=== PATIENT | male | born 2000 | race Caucasian/White ===

== ENCOUNTER 2018-04-17 10:42 | Outpatient (CLI) | payer BC ==
[2018-04-17 18:49] LABS: BASOPHILS % (AUTO) 0.7 %; EOSINOPHILS # (AUTO) 0.1 10^3/uL (0.0-0.7); EOSINOPHILS % (AUTO) 0.9 %; HGB - HEMOGLOBIN 14.6 g/dL (14.0-18.0); LYMPHOCYTES # (AUTO) 1.6 10^3/uL (1.5-3.5); LYMPHOCYTES % (AUTO) 25.6 %; MEAN CORPUSCULAR HEMOGLOBIN 29.7 pg (27.0-31.0); MEAN CORPUSCULAR HGB CONC 33.5 g/dL (32.0-36.0); MEAN CORPUSCULAR VOLUME 88.8 fL (80.0-94.0); MEAN PLATELET VOLUME 8.4 fL (7.4-11.4); MONOCYTES # (AUTO) 0.4 10^3/uL (0.0-1.0); MONOCYTES % (AUTO) 6.5 %; NEUTROPHILS % (AUTO) 66.3 %; PLT - PLATELET COUNT 237 10^3/uL (130-450); WHITE BLOOD COUNT 6.1 x10^3/uL (4.8-10.8)
[2018-04-17 19:06] LABS: ALBUMIN 4.8 g/dL (3.2-5.5); ALBUMIN/GLOBULIN RATIO 1.8 (1.0-2.2); ALKALINE PHOSPHATASE 66 IU/L (42-121); ALT ALANINE AMINOTRANSFERASE 17 IU/L (10-60); AST ASPARTATE AMINOTRANSFERASE 21 IU/L (10-42); BILIRUBIN,TOTAL 1.2 mg/dL (0.2-1.0); BUN - BLOOD UREA NITROGEN 16 mg/dL (6-20); CALCIUM 9.6 mg/dL (8.5-10.3); CARBON DIOXIDE - CO2 28 mmol/L (21-32); CHLORIDE 103 mmol/L (101-111); CHOL/HDL RATIO 2.2 (<5.0); CHOLESTEROL 132 mg/dL; CREATININE 0.8 mg/dL (0.6-1.2); GFR - MDRD 125 (>89); GLUCOSE 98 mg/dL (70-100); HDL CHOLESTEROL 60 mg/dL; SODIUM 140 mmol/L (135-145); TOTAL PROTEIN 7.5 g/dL (6.7-8.2)
[2018-04-17 19:42] LABS: LDL CHOLESTEROL,DIRECT 70 mg/dL; LDLD/HDL RATIO 1.2 (<3.6)
== END 2018-04-17 10:43 | disposition home or self-care (01) ==
LOC: LAB.WCP 10:42
PROVIDERS: ATTEND Family Medicine
DX: R63.4 Abnormal weight loss (principal)
CPT/HCPCS: 36415; 80053; 80061; 83721; 84443; 85025

== ENCOUNTER 2018-10-24 13:37 | Outpatient (CLI) | payer OTHER ==
--- NOTE | 2018-10-25 12:52 | XRAY Report ---
Reason: RIGHT FOOT PAIN Procedure Date: 10/24/2018 Accession Number: [id number] / [id number] Procedure: WCP - Foot 3 View RT CPT Code: FULL RESULT: EXAM: RIGHT FOOT RADIOGRAPHY EXAM DATE: 10/24/2018 01:37 PM. CLINICAL HISTORY: RIGHT FOOT PAIN. COMPARISON: None. TECHNIQUE: 3 views. FINDINGS: Bones: Normal. No fractures or bone lesions. Joints: Normal. No subluxations. Soft Tissues: Normal. No soft tissue swelling. IMPRESSION: Normal foot radiography. RADIA
== END 2018-10-24 23:59 | disposition home or self-care (01) ==
LOC: DI.WCP 13:37
PROVIDERS: ATTEND Family Medicine
DX: S90.31XA Contusion of right foot, initial encounter (principal)

== ENCOUNTER 2019-11-24 19:03 | Emergency (ER) | payer OTHER ==
[2019-11-24] MEDS ORDERED: TETANUS/DIPHTHERIA/PERTUSSIS 0.5 ML SYRINGE IM ONE (19:24)
[2019-11-24] MEDS ORDERED: BUFFERED LIDOCAINE 10 ML SYRINGE SUBQ STA (20:43)
[2019-11-24] MEDS ORDERED: BACITRACIN ZINC OINT 1 PACKET TOP STA (21:06)
[2019-11-24] MEDS ORDERED: cephALEXin 250 MG CAPSULE PO STA (21:07)
--- NOTE | 2019-11-24 21:10 | ED Physician Documentation ---
PD HPI UPPER EXT INJURY - Stated complaint Stated Complaint: L FINGER LAC - Chief complaint Chief Complaint: Laceration - History obtained from History obtained from: Patient - History of Present Illness Location: Left, Finger (index) Type of injury: Laceration (on metal flashing) Where injury occurred: Home Timing - onset: How many hours ago (1) Timing - duration: Hours (1) Timing - details: Abrupt onset Pain level max: 3 Pain level now: 2 Improved by: Rest Worsened by: Moving, Palpating Associated symptoms: No: Weakness, Numbness, Tingling, Swelling Contributing factors: No: Anticoagulated, Prior ortho surgery Recently seen: Not recently seen - Additonal information Additional information: pt is right handed, unknown last Td. Review of Systems Constitutional: denies: Fever Neurologic: denies: Focal weakness PD PAST MEDICAL HISTORY - Past Medical History Past Medical History: No - Past Surgical History Past Surgical History: No - Present Medications Home Medications: Ambulatory Orders Medication Instructions Recorded Confirmed Cephalexin [Keflex] 500 mg PO Q6H #28 capsule 11/24/19 - Allergies Allergies/Adverse Reactions: Allergies Allergy/AdvReac Type Severity Reaction Status Date / Time No Known Drug Allergies Allergy Verified 11/24/19 19:22 - Social History Does the pt smoke?: No Smoking Status: Never smoker Does the pt drink ETOH?: No Does the pt have substance abuse?: No - Immunizations Immunizations: TDAP >10years/unknown - POLST Patient has POLST: No PD ED PE NORMAL - Vitals Vital signs reviewed: Yes - General General: Alert and oriented X 3, No acute distress - HEENT HEENT: Moist mucous membranes - Derm Derm: Warm and dry - Extremities Extremities: Other (L index finger - Rectangular flap laceration 2cm palmar aspect of the mid phalanx. NVI. no Tendon injury. Superficial.) - Neuro Neuro: Alert and oriented X 3 - Psych Psych: Normal mood, Normal affect Results - Vitals Vitals: Vital Signs - 24 hr 11/24/19 11/24/19 19:10 21:21 Temperature 36.8 C 36.5 C Heart Rate 95 77 Respiratory 16 18 Rate Blood Pressure 145/75 H 148/77 H O2 Saturation 100 100 Oxygen O2 Source Room air Procedures - Laceration (location) L index finger Length in cm: 2 Wound type: Curved, Flap, Superficial, Into subcut fat, Clean Neurovascular status: Sensory intact, Motor intact, Vascular intact Tendon involvement: Tendon intact Anesthesia: Lidocaine 1% (buffered) Wound Preparation: Irrigated copiously NS, Wound explored, To the base Skin layer closure: Nylon, Interrupted, Size #-0 - enter number (4) Other: Patient tolerated well, No complications, Neurovascular intact, Tetanus booster given (tdap) Complexity: Simple PD MEDICAL DECISION MAKING - ED course Complexity details: considered differential, d/w patient, d/w family ED course: Laceration repaired. Tolerated well. Tdap given. Placed in a finger splint to help the healing process. They will remove the splint in a few days. We will place on cephalexin as well. Warnings of infection and instructions on wound care given at bedside. Also counseled on how to minimize scarring. Patient counseled regarding signs and symptoms for which I believe and urgent re- evaluation would be necessary. Patient with good understanding of and agreement to plan and is comfortable going home at this time This document was made in part using voice recognition software. While efforts are made to proofread this document, sound alike and grammatical errors may occur. Departure - Departure Disposition: 01 Home, Self Care Clinical Impression: Finger laceration Qualifiers: Encounter type: initial encounter Finger: index finger Damage to nail status: without damage Foreign body presence: unspecified Laterality: left Qualified Code(s): S61.211A - Laceration without foreign body of left index finger without damage to nail, initial encounter Condition: Good Instructions: ED Laceration Hand Follow-Up: your,doctor in 14 days for suture removal [Other] Prescriptions: Cephalexin [Keflex] 500 mg PO Q6H #28 capsule Comments: The sutures to be removed in approximately 14 days with your doctor. You can remove the splint after 2 to 3 days. Be gentle with the finger for the next few days. Return if you notice redness, swelling or drainage from the wound. Follow-up with your doctor for further care. Take all antibiotics until gone. Discharge Date/Time: 11/24/19 21:25
[2019-11-24 21:22] VITALS: BP 148/77
== END 2019-11-24 21:25 | disposition home or self-care (01) ==
LOC: ED 19:03
DX: S61.211A Laceration without foreign body of left index finger without damage to nail, initial encounter (principal); W26.8XXA Contact with other sharp object(s), not elsewhere classified, initial encounter; Y93.H3 Activity, building and construction; Y92.009 Unspecified place in unspecified non-institutional (private) residence as the place of occurrence of the external cause
CPT/HCPCS: 12001; 90471; 90715; 99283; 99284; A9270

== ENCOUNTER 2020-09-16 18:09 | Emergency (ER) | payer OTHER ==
[2020-09-16 18:21] VITALS: BP 157/60
[2020-09-16] MEDS ORDERED: PENICILLIN VK 250 MG TABLET PO STA (18:42)
[2020-09-16] MEDS ORDERED: HYDROcod/ACETAM 5/325 MG TABLET PO STA (18:42)
--- NOTE | 2020-09-16 18:43 | ED Physician Documentation ---
History of Present Illness - Stated complaint Stated Complaint: DENTAL PAIN - Chief complaint Chief Complaint: Heent - History obtained from History obtained from: Patient - History of Present Illness Pain level max: 10 Pain level now: 10 - Additonal information Additional information: Patient is a 20-year-old male who presents to the emergency department left lower dental pain ongoing for the past several days. He states he broke the tooth about a year ago, but has not had it fixed by a dentist yet. He states he has a dental appointment tomorrow. Increasing pain tonight. Currently not on antibiotics. No fevers. Nothing makes it better or worse. Review of Systems Constitutional: denies: Fever, Chills GI: denies: Vomiting Skin: denies: Rash PD PAST MEDICAL HISTORY - Past Medical History Past Medical History: No - Past Surgical History Past Surgical History: No - Present Medications Home Medications: Ambulatory Orders Medication Instructions Recorded Confirmed cephALEXin [Keflex] 500 mg PO Q6H #28 capsule 11/24/19 HYDROcod/ACETAM 5/325 [Weikert 5/325] 1 - 2 ea PO Q6H PRN #14 tablet 09/16/20 Penicillin V Potassium 500 mg PO Q6HR #40 tablet 09/16/20 - Allergies Allergies/Adverse Reactions: Allergies Allergy/AdvReac Type Severity Reaction Status Date / Time No Known Drug Allergies Allergy Verified 09/16/20 18:21 - Living Situation Living Situation: reports: With family Living Arrangement: reports: At home - Social History Does the pt smoke?: No Smoking Status: Never smoker Does the pt drink ETOH?: No Does the pt have substance abuse?: No - Immunizations Immunizations: TDAP >10years/unknown - POLST Patient has POLST: No PD ED PE NORMAL - Vitals Vital signs reviewed: Yes - General General: Alert and oriented X 3, No acute distress - HEENT HEENT: Moist mucous membranes, Other (Fractured left lower molar. No drainable abscess. Normal phonation. No trismus. No facial swelling) - Neck Neck: Supple, no meningeal sign - Cardiac Cardiac: RRR - Respiratory Respiratory: No respiratory distress - Derm Derm: Warm and dry - Neuro Neuro: Alert and oriented X 3 Results - Vitals Vitals: Vital Signs - 24 hr 09/16/20 18:17 Temperature 37.0 C Heart Rate 116 H Respiratory 14 Rate Blood Pressure 157/60 H O2 Saturation 97 Oxygen O2 Source Room air PD MEDICAL DECISION MAKING - ED course Complexity details: considered differential, d/w patient ED course: Patient with dental caries. We will have him follow-up with his dentist tomorrow. Will prescribe pain medication and antibiotics for home. Patient counseled regarding signs and symptoms for which I believe and urgent re- evaluation would be necessary. Patient with good understanding of and agreement to plan and is comfortable going home at this time This document was made in part using voice recognition software. While efforts are made to proofread this document, sound alike and grammatical errors may occur. Departure - Departure Disposition: Home, Self Care Clinical Impression: Dental caries Condition: Good Instructions: ED Tooth Pain, ED Cavity Dental Follow-Up: Shila Zhou PA-C [Primary Care Provider] - Prescriptions: Penicillin V Potassium 500 mg PO Q6HR #40 tablet HYDROcod/ACETAM 5/325 [Weikert 5/325] 1 - 2 ea PO Q6H PRN #14 tablet PRN Reason: Pain Comments: You can use the medications as needed for pain. Take all antibiotics until gone. Follow-up with your dentist tomorrow for further care. Return if you worsen. I am prescribing a short course of narcotic pain medication for you. These are potentially dangerous and addictive medications that should be used carefully. These medications may constipate you. Take an [id number]-irdtery stool softener (docusate) twice daily with plenty of water while taking these medications. If you go 24 hours without a bowel movement, take [id number] miralax, per package instructions. Do not drink or drive while taking these medications. If you received narcotic or sedating medications while in the emergency department, do not drive for 24 hours. Store this medication in a safe, secure place and out of reach of children. It is a violation of federal law to give or sell this medication to another person or to use in a manner other than prescribed. The ED will not refill narcotic prescriptions, including prescriptions lost or stolen. To dispose of unwanted medications: 1. [facility] at [address] in [place] has a medication drop box. They accept prescription medications (in pill form) Monday through Monday 9:00 a.m. to 5:00 p.m. 2. [facility] accepts prescription medications (in pill form only) for disposal year round. Call for more information. 3. Contact the [facility] for the next [facility] sponsored prescription drug collection event. , [phone], or [phone]; Discharge Date/Time: 09/16/20 19:02
== END 2020-09-16 19:02 | disposition home or self-care (01) ==
LOC: ED 18:09
DX: K02.9 Dental caries, unspecified (principal)
CPT/HCPCS: 99282; 99284; A9270

== ENCOUNTER 2020-11-10 19:17 | Emergency (ER) | payer OTHER ==
--- NOTE | 2020-11-10 19:35 | ED Physician Documentation ---
History of Present Illness - Stated complaint Stated Complaint: INFECTED WISDOM TOOTH L - Chief complaint Chief Complaint: Heent - History obtained from History obtained from: Patient - Additonal information Additional information: Here w/ left lower wisdom tooth pain that started yesterday. Had similar pain back in August, was seen here and then did follow up with dentist however dentist apparently then went on vacation and in the meantime the patient's pain resolved so he didn't follow up again. He presents today w/ same pain that came on suddenly in the left lower molar. He has been icing it and using ibuprofen and tylenol. He has not had any fever, facial swelling, oral swelling. He states he received PCN last time which helped but he later developed hives. Review of Systems Constitutional: reports: Reviewed and negative Eyes: reports: Reviewed and negative Ears: reports: Reviewed and negative Nose: reports: Reviewed and negative Throat: reports: Dental pain / toothache. denies: Oral lesions / sores, Sore throat, Swollen tonsils Cardiac: reports: Reviewed and negative Respiratory: reports: Reviewed and negative GI: reports: Reviewed and negative : reports: Reviewed and negative Skin: reports: Reviewed and negative Musculoskeletal: reports: Reviewed and negative Neurologic: reports: Reviewed and negative Psychiatric: reports: Reviewed and negative Endocrine: reports: Reviewed and negative PD PAST MEDICAL HISTORY - Past Medical History Past Medical History: No - Past Surgical History Past Surgical History: No - Present Medications Home Medications: Ambulatory Orders Medication Instructions Recorded Confirmed Clindamycin [Cleocin] 300 mg PO Q8H 5 Days #15 cap 11/10/20 - Allergies Allergies/Adverse Reactions: Allergies Allergy/AdvReac Type Severity Reaction Status Date / Time Penicillins Allergy Hives Verified 11/10/20 19:20 - Social History Does the pt smoke?: No Smoking Status: Never smoker Does the pt drink ETOH?: No Does the pt have substance abuse?: No - Immunizations Immunizations: TDAP >10years/unknown - POLST Patient has POLST: No PD ED PE NORMAL - Vitals Vital signs reviewed: Yes - General General: Alert and oriented X 3, No acute distress, Well developed/nourished - HEENT HEENT: Atraumatic, PERRL, Moist mucous membranes, Pharynx benign, Other (left lower molar dental alesha, no gum swelling, no facial swelling or erythema) - Neck Neck: Supple, no meningeal sign, No adenopathy, No JVD - Cardiac Cardiac: RRR, No murmur - Respiratory Respiratory: No respiratory distress, Clear bilaterally - Abdomen Abdomen: Normal bowel sounds, Soft, Non tender, Non distended - Derm Derm: Normal color, Warm and dry, No rash - Extremities Extremities: No deformity, No edema - Neuro Neuro: Alert and oriented X 3, No motor deficit, No sensory deficit, Normal speech Eye Opening: Spontaneous Motor: Obeys Commands Verbal: Oriented GCS Score: 15 - Psych Psych: Normal mood, Normal affect Results - Vitals Vitals: Vital Signs - 24 hr 11/10/20 11/10/20 19:21 19:27 Temperature 36.6 C 36.6 C Heart Rate 86 86 Respiratory 18 18 Rate Blood Pressure 181/85 H 181/85 H O2 Saturation 99 99 Oxygen O2 Source Room air PD MEDICAL DECISION MAKING - ED course Complexity details: reviewed old records, re-evaluated patient, d/w patient ED course: Pt presents w/ left lower wisdom molar pain. I see a possible alesha but no facial or gum swelling. He was advised to call dentist tomorrow for follow up. Will start on clinda given pcn allergy, cautioned pt on the side effects of this medication and encouraged yogurt or probiotic use while on the abx. He was advised to take ibuprofen and tylenol as needed for pain. He received 2 tablets of norco in the ED and a 4 tablet home pack to use tomorrow only if needed. He was cautioned on the potential side effects of this medication and advised not to drive or operate heavy machinery, nor use alcohol or other respiratory suppressants simultaneously. I reviewed return precautions in detail w/ pt. Pts initial BP is elevated I suspect 2/2 to pain and advised him to have it rechecked in 1-2 weeks at PCP office or school clinic. Departure - Departure Disposition: 01 Home, Self Care Clinical Impression: Pain due to dental caries, Dental caries Condition: Good Instructions: ED Tooth Pain Prescriptions: Clindamycin [Cleocin] 300 mg PO Q8H 5 Days #15 cap Comments: Please call tomorrow and schedule a dentist appointment. Continue ibuprofen and tylenol as needed for pain. Continue cool compress.
[2020-11-10] MEDS ORDERED: HYDROcod/ACET 5/325 Prepack 4 PO STA (19:36)
[2020-11-10] MEDS ORDERED: HYDROcod/ACETAM 5/325 MG TABLET PO STA (19:37)
[2020-11-10 19:43] VITALS: BP 133/85
== END 2020-11-10 19:42 | disposition home or self-care (01) ==
LOC: ED 19:17
DX: K02.9 Dental caries, unspecified (principal)
CPT/HCPCS: 99282; 99283; A9270

== ENCOUNTER 2022-05-05 19:14 | Outpatient (CLI) | payer OTHER ==
--- NOTE | 2022-05-05 20:41 | Ultrasound Report ---
PROCEDURE: Testicle INDICATIONS: RIGHT TESTICULAR MASS TECHNIQUE: Real-time scanning was performed of the scrotum and testicles, with image documentation. Color and p ulse Doppler interrogation was performed of both testicles. COMPARISON: None. FINDINGS: Right: Testicle measures 4.4 x 2.5 x 2.9 cm and appears homogenous in echotexture. There is a hypoe choic mass or masslike region of edema within the right epididymal body measuring up to 1.5 x 0.9 x 1 .3 cm. This demonstrates internal vascularity on color Doppler interrogation. There is a small epidi dymal cyst or spermatocele measuring up to 0.3 cm. There is a minimal hydrocele. There is a small beni icocele. Overlying scrotal skin is normal in thickness. Left: Testicle measures 4.7 x 2.5 x 2.8 cm and appears homogeneous in echotexture. Epididymis is no rmal in overall size and morphology. There is a minimal hydrocele. There is a small varicocele. Overl meliton scrotal skin is normal in thickness. Doppler: Color and pulse Doppler demonstrate normal and symmetric arterial flow in both testicles. IMPRESSION: 1. Hypoechoic mass or masslike edema within the right epididymal body may represent a neoplasm or loc alized epididymitis. Reviewed by: Dg Trivedi MD on 05/05/2022 8:40 PM PDT Approved by: Dg Trivedi MD on 05/05/2022 8:40 PM PDT Station ID: [id number]
== END 2022-05-05 19:15 | disposition home or self-care (01) ==
LOC: DI 19:14
PROVIDERS: ATTEND Physician Assistant
DX: N50.9 Disorder of male genital organs, unspecified (principal)